=== PATIENT | female | born 1985 | race Caucasian/White ===

== ENCOUNTER → 2023-07-31 20:24 | Outpatient (REF) | payer BC, SELFPAY | LOC: MRI 20:24 | PROVIDERS: ATTENDING PHYSICIAN Psychiatry & Neurology Neurology; FAMILY PHYSICIAN Internal Medicine | DX: G45.9 Transient cerebral ischemic attack, unspecified (principal) | CPT/HCPCS: 70549; A9585 ==

== ENCOUNTER → 2023-09-16 07:03 | Outpatient (REF) | payer BC, SELFPAY | LOC: RAD 07:03 | PROVIDERS: ATTENDING PHYSICIAN Student in an Organized Health Care Education/Training Program; FAMILY PHYSICIAN Internal Medicine | DX: G45.9 Transient cerebral ischemic attack, unspecified (principal) | CPT/HCPCS: 93880 ==

== ENCOUNTER → 2023-10-08 07:25 | Outpatient (REF) | payer BC, SELFPAY | LOC: RCS 07:25 | PROVIDERS: ATTENDING PHYSICIAN Internal Medicine Interventional Cardiology; FAMILY PHYSICIAN Internal Medicine; REFERRING PHYSICIAN Internal Medicine Interventional Cardiology | DX: Q21.11 Secundum atrial septal defect (principal) | CPT/HCPCS: 93306 ==

== ENCOUNTER → 2023-12-29 15:48 | Outpatient (REF) | payer BC, SELFPAY ==
[2023-12-29 15:15] LABS: % Basophils 0.5 % (0-2); % Eosinophils 7.4 % (0-6); % Immature Granulocytes 0.3 % (0-0.5); % Lymphocytes 27.4 % (20.5-51.1); % Monocytes 6.6 % (1.7-9.3); % Neutrophils 57.8 % (42.2-75.2); Absolute Eosinophils 0.6 10^3/uL (0-0.7); Absolute Lymphocytes 2.1 10^3/uL (1.2-3.4); Absolute Monocytes 0.5 10^3/uL (0.1-0.6); Absolute Neutrophils 4.5 10^3/uL (1.4-6.5); Hematocrit 33.3 % (37.0-47.0); Hemoglobin 12.1 g/dL (12.0-16.0); Mean Corp Hgb Conc. 36.3 g/dL (33.0-37.0); Mean Corpuscular Hgb 24.4 pg (27.0-31.0); Mean Corpuscular Volume 67.1 fL (81.0-99.0); Mean Platelet Volume 10.1 fL (7.4-10.4); Nucleated Red Blood Cells % 0 %; Platelet Count 333 10^3/uL (130-400); Red Blood Cell Count 4.96 10^6/uL (4.20-5.40); Red Cell Dist. Width 13.6 % (11.5-14.5); White Blood Cell Count 7.8 10^3/uL (4.8-10.8)
== END ==
LOC: OIDL 15:48
PROVIDERS: ATTENDING PHYSICIAN Internal Medicine Hematology & Oncology
DX: I63.40 Cerebral infarction due to embolism of unspecified cerebral artery (principal)
CPT/HCPCS: 85025

== ENCOUNTER → 2024-01-12 16:02 | Outpatient (REF) | payer BC, SELFPAY ==
[2024-01-12 14:36] LABS: % Basophils 0.8 % (0-2); % Eosinophils 7.6 % (0-6); % Immature Granulocytes 0.4 % (0-0.5); % Lymphocytes 32.8 % (20.5-51.1); % Monocytes 4.9 % (1.7-9.3); % Neutrophils 53.5 % (42.2-75.2); Absolute Basophils 0.1 10^3/uL (0-0.2); Absolute Eosinophils 0.6 10^3/uL (0-0.7); Absolute Lymphocytes 2.6 10^3/uL (1.2-3.4); Absolute Monocytes 0.4 10^3/uL (0.1-0.6); Absolute Neutrophils 4.3 10^3/uL (1.4-6.5); Mean Corp Hgb Conc. 36.4 g/dL (33.0-37.0); Mean Corpuscular Hgb 24.8 pg (27.0-31.0); Mean Corpuscular Volume 68.2 fL (81.0-99.0); Mean Platelet Volume 9.9 fL (7.4-10.4); Nucleated Red Blood Cells % 0 %; Platelet Count 320 10^3/uL (130-400); Red Blood Cell Count 4.84 10^6/uL (4.20-5.40); Red Cell Dist. Width 14.1 % (11.5-14.5)
== END ==
LOC: OIDL 16:02
PROVIDERS: ATTENDING PHYSICIAN Internal Medicine Hematology & Oncology
DX: I63.40 Cerebral infarction due to embolism of unspecified cerebral artery (principal)
CPT/HCPCS: 85025

== ENCOUNTER 2024-08-24 22:24 | Inpatient (IN) | payer BC, SELFPAY ==
[2024-08-24 17:55] VITALS: BP 171/111
--- NOTE | 2024-08-24 17:59 | ED.GENMED ---
ED Provider Triage
<Major Wang PA-C - Last Filed: 08/24/24 18:00>
-
Patient seen by provider in Triage?: Seen in Triage
Attestation: A medical screening examination has been initiated by a qualified medical provider. Based on the assessment performed at this time, it has been determined that an emergent medical condition may exist and the patient has been informed
that further medical evaluation and possible additional diagnostic testing may be needed.
HPI: 38-year-old female presents the emergency department for evaluation of left-sided chest discomfort and left arm numbness beginning 2 to 3 hours ago. She was seated at her work desk when the symptoms began. Feels comparable to prior episodes
that were felt to represent a TIA and was ultimately diagnosed with an atrial septal defect which was since been repaired at [facility]
GENERAL: Alert , in no apparent distress
EYE: No visual abnormalities.
NECK: Trachea midline
ENT: No visible abnormalities.
LUNGS: No acute respiratory distress
NEUROLOGICAL: Alert and oriented
SKIN: Skin intact. No visible changes.
MUSCULOSKELETAL: Moving extremities normally
PSYCH: Normal and appropriate interaction.
This is a medical evaluation conducted in person to initiate diagnostic evaluation and provide initial therapeutics. Please see further documentation by the treating clinician.
History of Present Illness
<Major Wang PA-C - Last Filed: 08/24/24 18:00>
General
Chief Complaint: Breathing Problem
Time Seen by Provider: 08/24/24 20:44
<Krzysztof Cerda DO - Last Filed: 08/24/24 23:01>
General
Source: patient
Exam Limitations: none
Nursing documentation reviewed up to this point in time: agreed with
History of Present Illness
History of Present Illness:
. 38-year-old female presents Emergency Department complaining of left-sided chest pain and left jaw pain left upper extremity and left lower extremity numbness and tingling. This began at about 3 PM. She has had similar episodes with a negative
stroke workup in the past, but has received TNK and tPA.
Past History
<Major Wang PA-C - Last Filed: 08/24/24 18:00>
Past History
ED Past Medical History: CVA and Other (ASD)
ED Past Surgical History: Cardiac (ASD closure at 04/08/2023)
Social History
Tobacco: Non-smoker
Alcohol: None
Drug: None
Personal:
Living: with family
Review of Systems
<Krzysztof Cerda, - Last Filed: 08/24/24 23:01>
Review of Systems
Allergies reviewed?: Yes
All Other Systems: Not applicable
Constitutional: Reports no symptoms
EENT: Reports no symptoms
Respiratory: Reports no symptoms
Cardiac: Reports chest pain
ABD/GI: Reports no symptoms
: Reports no symptoms
Musculoskeletal: Reports no symptoms
Skin: Reports no symptoms
Neurological: Reports numbness
Endocrine: Reports no symptoms
Hematologic/Lymphatic: Reports no symptoms
Psychiatric: Reports no symptoms
Phy Exam
<Krzysztof Cerda DO - Last Filed: 08/24/24 23:01>
Physical Exam
Physical Exam:
Physical Exam
General: no apparent distress, not acutely ill
Neck: supple. no meningeal signs. normal posterior pharynx
Heart: s1/s2 regular rate and rhythm, no murmur. equal radial
pulses.
HEENT: Pupils equal round reactive to light, EOMI
Lungs: no acute respiratory distress. clear bilaterally
Abdomen: normal bowel sounds. not tender. no CVAT
Neuro: alert and oriented. no focal neurological deficits cranial nerves II through XII intact
Skin: no rash
Psychiatric: well kept. interactive and cooperative
Extremities: no edema. no calf tenderness. negative homans. good distal pulses
Course
<Major Wang PA-C - Last Filed: 08/24/24 18:00>
Orders/Labs/Results
Orders:
Orders
08/24/24 17:35
Electrocardiogram (*1) Urgent
Reason for Study: Shortness of Breath
EKG- Treatment ONCE
08/24/24 17:58
CT Head W/o Iv Contrast Urgent
Comment:
Reason For Exam: L facial/arm/leg numbness
08/24/24 18:11
Complete Blood Count/With Diff Urgent
Comprehensive Metabolic Panel Urgent
D-Dimer Urgent
Troponin I Urgent
08/24/24 21:19
Aspirin 325 mg PO NOW STA
Labetalol HCl [Trandate] 10 mg IV NOW STA
08/24/24 22:17
Admit/Transfer Patient As Directed
Co-Sign Provider:
Level of Care: Inpatient admission
Assign to:: Telemetry
Physician / Group: cande
Diagnosis: atypical
Reason for Telemetry: Arrhythmia
Date to Stop Telemetry: 08/27/24
Time to Stop Telemetry: 11:00
Reason for Hospitalization: left sided weakness
Expected length of stay greater than two midnights?: Yes
ELOS- Estimated Length of Stay in days: 2
I certify the patient meets the requirements for IP care: Yes
PRN Pain Medication Management As Directed
May give lesser potent ordered pain med per pt: Yes
preference::
Protocol:: Medication orders for pain may be administered in a
manner that supports deferring to patient preference
when the pt is:
- Requesting an ordered lesser potent pain medication.
Least to most potent pain medications are defined
as: acetaminophen < NSAID < tramadol < opioids
(morphine, oxycodone, hydromorphone).
- Requesting a lesser dose of the same medication IF
ORDERED.
- Requesting a less intrusive route of administration
if both routes are prescribed by the provider (PO <
IV).
08/24/24 22:18
Code Status As Directed
Resuscitation Status: Full Code
08/24/24 22:20
Clopidogrel Bisulfate [Plavix] 300 mg PO NOW STA
08/27/24 11:00
DC Protocol for Telemetry ONCE
Abnormal Lab Results
08/24/24
18:11
Hct 35.8 L %
(37.0-47.0)
MCV 70.3 L fL
(81.0-99.0)
MCH 25.7 L pg
(27.0-31.0)
Eosinophils % 8.2 H %
(0-6)
08/24/24 18:11
08/24/24 18:11
Vital Signs
Initial and Last Documented VS:
Initial Vital Signs
Temp Pulse Resp BP Pulse Ox
98.5 F 69 18 171/111 99
08/24/24 17:55 08/24/24 17:55 08/24/24 17:55 08/24/24 17:55 08/24/24 17:55
Last Documented Vital Signs
Temp Pulse Resp BP Pulse Ox
98.5 F 59 15 151/97 98
08/24/24 17:55 08/24/24 22:30 08/24/24 22:30 08/24/24 22:00 08/24/24 22:30
<Krzysztof Cerda, DO - Last Filed: 08/24/24 23:01>
Orders/Labs/Results
Orders:
Orders
08/24/24 17:35
Electrocardiogram (*1) Urgent
Reason for Study: Shortness of Breath
EKG- Treatment ONCE
08/24/24 17:58
CT Head W/o Iv Contrast Urgent
Comment:
Reason For Exam: L facial/arm/leg numbness
08/24/24 18:11
Complete Blood Count/With Diff Urgent
Comprehensive Metabolic Panel Urgent
D-Dimer Urgent
Troponin I Urgent
08/24/24 21:19
Aspirin 325 mg PO NOW STA
Labetalol HCl [Trandate] 10 mg IV NOW STA
08/24/24 22:17
Admit/Transfer Patient As Directed
Co-Sign Provider:
Level of Care: Inpatient admission
Assign to:: Telemetry
Physician / Group: cande
Diagnosis: atypical
Reason for Telemetry: Arrhythmia
Date to Stop Telemetry: 08/27/24
Time to Stop Telemetry: 11:00
Reason for Hospitalization: left sided weakness
Expected length of stay greater than two midnights?: Yes
ELOS- Estimated Length of Stay in days: 2
I certify the patient meets the requirements for IP care: Yes
PRN Pain Medication Management As Directed
May give lesser potent ordered pain med per pt: Yes
preference::
Protocol:: Medication orders for pain may be administered in a
manner that supports deferring to patient preference
when the pt is:
- Requesting an ordered lesser potent pain medication.
Least to most potent pain medications are defined
as: acetaminophen < NSAID < tramadol < opioids
(morphine, oxycodone, hydromorphone).
- Requesting a lesser dose of the same medication IF
ORDERED.
- Requesting a less intrusive route of administration
if both routes are prescribed by the provider (PO <
IV).
08/24/24 22:18
Code Status As Directed
Resuscitation Status: Full Code
08/24/24 22:20
Clopidogrel Bisulfate [Plavix] 300 mg PO NOW STA
08/27/24 11:00
DC Protocol for Telemetry ONCE
Abnormal Lab Results
08/24/24
18:11
Hct 35.8 L %
(37.0-47.0)
MCV 70.3 L fL
(81.0-99.0)
MCH 25.7 L pg
(27.0-31.0)
Eosinophils % 8.2 H %
(0-6)
08/24/24 18:11
08/24/24 18:11
Vital Signs
Initial and Last Documented VS:
Initial Vital Signs
Temp Pulse Resp BP Pulse Ox
98.5 F 69 18 171/111 99
08/24/24 17:55 08/24/24 17:55 08/24/24 17:55 08/24/24 17:55 08/24/24 17:55
Last Documented Vital Signs
Temp Pulse Resp BP Pulse Ox
98.5 F 59 15 151/97 98
08/24/24 17:55 08/24/24 22:30 08/24/24 22:30 08/24/24 22:00 08/24/24 22:30
<Krzysztof Cerda, DO - Last Filed: 08/24/24 23:01>
MDM/Problems Addressed
Differential Diagnosis Includes:
ACS, pulmonary embolism, TIA, CVA
MDM/Problems Addressed:
38-year-old female with left-sided numbness concerning for TIA versus atypical migraine. TNK/tPA not indicated. Will admit for further evaluation.
Chronic conditions affecting care: HTN and Other (ASD)
<Krzysztof Cerda, DO - Last Filed: 08/24/24 23:01>
*Radiology
Radiology exam reviewed: radiology read reviewed (CT head no acute findings)
*Pulse Oximetry
Patient hypoxic: no
*EKG
Interpreted by ED Provider?: Yes
EKG Intrepretation Date: 08/24/24
EKG Intrepretation Time: 17:37
Interpretation: normal
Comparison EKG: no comparison EKG present
Heart Rate: 66
Rate: normal
Rhythm: sinus
[place]: normal axis
Interval: normal interval
QRS Pattern: normal QRS
Ischemia: no ischemia
*Outside Rigger Interpretation
Rate: normal
Interpretation: normal
Heart Rate: 70
Rhythm: sinus
*Critical Care Note
Total Time (30-74mins, 75-104mins- exclusive of procedures): Not Applicable
Data Reviewed
Review of Other/Old Records Reveals: Labs, Radiology Studies (prior normal MRI) and Progress Notes (prior concern for CVA, given TNK and TPA)
Source: patient and records
Prescriptions/Medications Considered But Not Given:
TNK not indicated
<Krzysztof Cerda DO - Last Filed: 08/24/24 23:01>
Patient Management
Social determinants of health affecting care: Living situation and Strong social support
Discussion with other providers: Hospitalist
Escalation/DeEscalation of care consider admission/obs:
admit indicated
ED Attending Note
<Major Wang PA-C - Last Filed: 08/24/24 18:00>
-
Portions of this chart may have been created with voice recognition software.� Occasional wrong word or��sound alike� substitutions may have occurred due to the inherent limitations of voice recognition software.
Discharge Plan
Departure
Patient Disposition: Admit
Date of Disposition: 08/24/24
Time of Disposition: 21:18
Admit to: Telemetry
Presentation/result/management discussed w/ accepting MD/DO: Hospitalist
Patient with high blood pressure during this ER visit?: Yes
Condition: Good
Discharge Problem:
Paresthesia and pain of left extremity, Hypertensive urgency
Interventions
Interventions:
*Risk Screen - Suicide Last Done: 08/24/24 17:55
*General Assessment Last Done: 08/24/24 18:00
*Neglect/Abuse Screening Last Done: 08/24/24 21:23
ED- Fall Risk Assessment Last Done: 08/24/24 21:23
*ED COVID-19 Vaccine History Last Done: 08/24/24 17:55
ED- Cardiac Assessment Last Done: 08/24/24 21:23
ED- Pulmonary Assessment Last Done: 08/24/24 21:23
[2024-08-24 18:35] LABS: % Basophils 0.6 % (0-2); % Eosinophils 8.2 % (0-6); % Immature Granulocytes 0.1 % (0-0.5); % Lymphocytes 38.6 % (20.5-51.1); % Monocytes 6.1 % (1.7-9.3); % Neutrophils 46.4 % (42.2-75.2); Absolute Basophils 0.1 10^3/uL (0-0.2); Absolute Eosinophils 0.6 10^3/uL (0-0.7); Absolute Monocytes 0.5 10^3/uL (0.1-0.6); Absolute Neutrophils 3.6 10^3/uL (1.4-6.5); Hematocrit 35.8 % (37.0-47.0); Hemoglobin 13.1 g/dL (12.0-16.0); Mean Corp Hgb Conc. 36.6 g/dL (33.0-37.0); Mean Corpuscular Hgb 25.7 pg (27.0-31.0); Mean Corpuscular Volume 70.3 fL (81.0-99.0); Mean Platelet Volume 9.6 fL (7.4-10.4); Nucleated Red Blood Cells % 0 %; Platelet Count 326 10^3/uL (130-400); Red Blood Cell Count 5.09 10^6/uL (4.20-5.40); Red Cell Dist. Width 12.5 % (11.5-14.5); White Blood Cell Count 7.9 10^3/uL (4.8-10.8)
[2024-08-24 18:52] LABS: D-Dimer 0.27 ug/mlFEU (0.00-0.50)
[2024-08-24 18:57] LABS: Troponin I < 0.012 ng/ml
[2024-08-24 18:59] LABS: ALT (SGPT) 19 U/L (0-35); AST (SGOT) 23 U/L (14-36); Albumin 4.6 g/dl (3.5-5.0); Alkaline Phosphatase 119 U/L (38-126); Blood Urea Nitrogen 10 mg/dl (7-17); Calcium 9.7 mg/dl (8.4-10.2); Carbon Dioxide 25 mmol/L (22-30); Chloride 101 mmol/L (98-107); Glucose 81 mg/dl (70-99); Potassium 4.1 mmol/L (3.5-5.1); Sodium 136 mmol/L (135-145); Total Bilirubin 0.6 mg/dl (0.2-1.3); Total Protein 7.7 g/dl (6.3-8.2); eGFR > 60.00
[2024-08-24 21:17] VITALS: BP 150/103
[2024-08-24 21:21] VITALS: BMI 27.6
[2024-08-24] MEDS: ASPIRIN 325 MG PO (21:38)
[2024-08-24 21:44] VITALS: BP 159/112
[2024-08-24] MEDS: TRANDATE 10 MG IV (21:46)
[2024-08-24 22:00] VITALS: BP 151/97
--- NOTE | 2024-08-24 22:22 | HPS.HSE ---
Family Physician
-
Family Physician: Laura Andersen
Chief Complaint
-
left sided tingling
History of Present Illness
38-year-old female past medical history of TIAs, ASD status post ASD closure in 2022, B12 deficiency, migraines, presenting with left-sided facial tingling as well as left upper extremity tingling starting around 3 PM today. This is also associated
with some discomfort in her left chest associated with shortness of breath. Denies vertigo, speaking or swallowing difficulty.
She has a history of migraines and a variable frequency sometimes a few times a week to only a few times a month. She has been having a persistent headache all around her head for the past week. She takes Nurtec as needed.
She states that the symptoms have improved a little bit. But continues to feel that her hand feels different. She denies any vertigo. She denies any nausea or vomiting or sweating.
Since her last admission here she has followed up with cardiology at [place] who did not note any changes in her care. She was following with Dr. Berry of neurology here who thought she was having migraines.
She also has seen rheumatology who did autoimmune workup and did not find any pathological cause for her symptoms.
When she was admitted in May with similar symptoms she received TNK. MRI of the brain was unremarkable. CTA showed no vascular abnormalities. She was continued on dual antiplatelet therapy. Psychiatric evaluation was concern for possible
conversion disorder. No cardiac cause was found for chest pain.
She takes lisinopril as needed if her diastolic blood pressures greater than 95.
She denies smoking or alcohol use.
Medical History
Past Medical History
Past Medical History: Reports Other (TIAs, ASD status post ASD closure in 2022, B12 deficiency, migraines,)
Past Surgical History: Reports None
Social History
Tobacco: Non-smoker
Alcohol: None
Drug: None
Family History
Family History: Not pertinent
Allergies / Home Medications
Allergies reflects when Allergies were last updated in AF83.
Home Medications with original date entered in AF83
Allergy/Medication List:
Allergies
Allergy/AdvReac Type Severity Reaction Status Date / Time
No Known Allergies Allergy Verified 08/24/24 18:00
Home Medications
lisinopril 5 mg tablet 5 mg PO DAILYPRN PRN diastolic BP>95 08/24/24
rimegepant 75 mg disintegrating tablet (Nurtec ODT) 75 mg PO DAILYPRN PRN migraine 08/24/24
Review of Systems
-
History Source: Patient
A 12 point ROS was completed and negative except as noted: Yes
Constitutional: Reports No Symptoms
EENT: Reports No Symptoms
Respiratory: Reports No Symptoms
Cardiac: Reports No Symptoms
Abdomen/GI: Reports No Symptoms
: Reports No Symptoms
Musculoskeletal: Reports No Symptoms
Skin: Reports No Symptoms
Neurological: Reports See HPI
Endocrine: Reports No Symptoms
Hematologic/Lymphatic: Reports No Symptoms
Psych: Reports No Symptoms
Physical Exam
Vital Signs
Vital Signs
Temp Pulse Resp BP Pulse Ox
98.5 F 64 12 151/97 98
08/24/24 17:55 08/24/24 22:00 08/24/24 22:00 08/24/24 22:00 08/24/24 22:00
Physical Exam
General: Well Developed, Well Nourished and No Apparent Distress
HEENT: NormoCephalic, Moist mucous membranes and Atraumatic
Respiratory: Clear
Cardiac: S1/S2 and Regular Rhythm; No Murmur or Rub
GI: Soft, Non Tender, Non Distended and Normal Bowel Sounds; No Organomegaly
Rectal: Deferred by Provider
Musculoskeletal: No Clubbing, No Cyanosis and No Edema
Skin: No Rash
Neuro: Nonfocal/grossly intact and Other (left sided numbness, slight weakness )
Laboratory Results
-
08/24/24 18:11
08/24/24 18:11
Laboratory Results
Total Bilirubin 0.6 mg/dl (0.2-1.3) 08/24/24 18:11
AST 23 U/L (14-36) 08/24/24 18:11
ALT 19 U/L (0-35) 08/24/24 18:11
Alkaline Phosphatase 119 U/L (38-126) 08/24/24 18:11
Troponin I < 0.012 ng/ml 08/24/24 18:11
Data Reviewed
-
Lab Data: Labs Reviewed by me
Old Records: Reviewed
Impression/Plan
-
IMPRESSION:
PLAN:
# Atypical migraine versus recurrent TIA versus CVA versus versus conversion disorder
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
-Very similar symptoms compared to when I saw her in May 2023, and also having ongoing recurrent migraines
-CT head shows no acute abnormality
-Aspirin 325 mg given, also giving 300 Plavix
-Check MRI brain/MRA head and neck
-Neurochecks per protocol
-Neurology consulted
# Chest pain secondary to above phenomenon
-Patient likewise had chest pressure with previous episode like this
-EKG shows normal sinus rhythm, LVH
-Troponin negative, continue to trend
# Hypertensive urgency
-Given labetalol but allow for permissive hypertension at this time in case this is a CVA
# Recurrent migraines
-May need preventive therapy
-Defer to neurology
History of small ASD status post ASD closure in March
-No updates as per cardio
B12 deficiency
-Check B12, TSH
Vitamin D deficiency
Full code
DVT prophylaxis�SCDs
Regular diet
[2024-08-24] MEDS: PLAVIX 300 MG PO (22:30)
[2024-08-24 23:00] VITALS: BP 135/87
[2024-08-25] VITALS: BP 123/81
[2024-08-25 01:00] VITALS: BP 114/81
[2024-08-25 02:00] VITALS: BP 106/79
[2024-08-25 04:00] VITALS: BP 107/83
[2024-08-25 05:53] LABS: % Basophils 0.9 % (0-2); % Immature Granulocytes 0.2 % (0-0.5); % Lymphocytes 27.5 % (20.5-51.1); % Monocytes 6.9 % (1.7-9.3); % Neutrophils 52.5 % (42.2-75.2); Absolute Basophils 0.1 10^3/uL (0-0.2); Absolute Eosinophils 0.8 10^3/uL (0-0.7); Absolute Lymphocytes 1.8 10^3/uL (1.2-3.4); Absolute Monocytes 0.5 10^3/uL (0.1-0.6); Absolute Neutrophils 3.5 10^3/uL (1.4-6.5); Hematocrit 35.3 % (37.0-47.0); Hemoglobin 12.7 g/dL (12.0-16.0); Mean Corpuscular Hgb 25.7 pg (27.0-31.0); Mean Corpuscular Volume 71.5 fL (81.0-99.0); Mean Platelet Volume 9.8 fL (7.4-10.4); Nucleated Red Blood Cells % 0 %; Platelet Count 271 10^3/uL (130-400); Red Blood Cell Count 4.94 10^6/uL (4.20-5.40); Red Cell Dist. Width 12.6 % (11.5-14.5); White Blood Cell Count 6.7 10^3/uL (4.8-10.8)
[2024-08-25 06:19] LABS: ALT (SGPT) 16 U/L (0-35); AST (SGOT) 19 U/L (14-36); Albumin 3.7 g/dl (3.5-5.0); Alkaline Phosphatase 101 U/L (38-126); Blood Urea Nitrogen 10 mg/dl (7-17); Calcium 9.1 mg/dl (8.4-10.2); Carbon Dioxide 24 mmol/L (22-30); Chloride 104 mmol/L (98-107); Estimated Creatinine Clearance 94 ml/min; Glucose 95 mg/dl (70-99); Potassium 3.8 mmol/L (3.5-5.1); Sodium 137 mmol/L (135-145); Total Bilirubin 0.8 mg/dl (0.2-1.3); Total Protein 6.7 g/dl (6.3-8.2); eGFR > 60.00
[2024-08-25 06:52] LABS: TSH Reflex To Free T4 2.74 uIU/ml (0.47-4.68)
[2024-08-25 07:10] LABS: Vitamin B12 251 pg/ml (239-931)
[2024-08-25 10:31] VITALS: BP 127/93
--- NOTE | 2024-08-25 10:34 | PTCARENOTE ---
Patient received on stretcher alert and oriented. Patient denying headache, blurred vision. Patient states that the only residual issue is numbness and tingling in left hand. Patient seen by Hospitalist. Mri completed this am, disposition pending
results.
--- NOTE | 2024-08-25 11:53 | W.PN.HOSP.TC ---
Addendum entered and electronically signed by Elmer Eldridge MD 08/25/24 12:03:
Discussed with neurology Dr. Rocha, he has discussed preventatives with patient. Will discharge her today since she is improved
Original Note:
Today's Communication/Plan
-
Monitor vital signs see plan
Awaiting neurology recommendation prior to discharge
DC aspirin Plavix
Assessment / Plan
Assessment / Plan
General: Well Developed, Well Nourished and No Apparent Distress
HEENT: NormoCephalic, Moist mucous membranes and Atraumatic
Respiratory: Clear
Cardiac: S1/S2 and Regular Rhythm; No Murmur or Rub
GI: Soft, Non Tender, Non Distended and Normal Bowel Sounds
Musculoskeletal: No Edema
Neuro: Nonfocal/grossly intact
Left-sided numbness suspect secondary to atypical migraine
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
-Very similar symptoms compared to when I saw her in May 2023, and also having ongoing recurrent migraines
-CT head shows no acute abnormality
MRI/MRA negative for acute CVA. Neurology following. If patient stable from neurological standpoint then likely discharge today
Advised patient to follow-up with migraine specialist outpatient. Currently her symptoms are about 90% better
# Chest pain secondary to above phenomenon
-Patient likewise had chest pressure with previous episode like this
-EKG shows normal sinus rhythm, LVH
-Troponin negative
# Hypertensive urgency
-Given labetalol in ED 08/24; now improved
Advised patient to check her blood pressure at home and to follow-up with primary care provider
Vitamin B12 deficiency
Replete
# Recurrent migraines
-May need preventive therapy
-Defer to neurology
History of small ASD status post ASD closure in March
-No updates as per cardio
Vitamin D deficiency
Full code
DVT prophylaxis�SCDs
Anticipated Discharge: Today
Subjective/Interval History
-
Date of Service: August 25, 2024
denies pain
Objective Data
-
Labs:
Laboratory Results
08/25/24
05:25
WBC 6.7
Hgb 12.7
Hct 35.3 L
Plt Count 271
Sodium 137
Potassium 3.8
Chloride 104
Carbon Dioxide 24
BUN 10
Creatinine 0.7
Glucose 95
Calcium 9.1
Total Bilirubin 0.8
AST 19
ALT 16
Alkaline Phosphatase 101
Vital Signs:
Vital Signs
Temp Pulse Resp BP Pulse Ox
98.5 F 67 16 127/93 95
08/25/24 10:31 08/25/24 10:31 08/25/24 10:31 08/25/24 10:31 08/25/24 10:31
--- NOTE | 2024-08-25 12:08 | W.DCSUMMARY ---
Discharge Summary
Discharge Data
Date of Admission: 08/24/24
Date of Discharge: 08/25/24
-
Pending Results: No
Hospital Course
38-year-old female with past medical history of ASD repair, migraine came to the hospital with left-sided numbness and weakness. CT scan and MRI both were negative for any CVA. Patient was seen by neurology with outpatient symptoms are likely
related to migraine. Patient initially had elevated blood pressure and was giving labetalol. On discharge she was directed to check her blood pressure twice daily and to follow-up with primary care provider for further blood pressure medication
titration. She also had low vitamin B12 and was started on vitamin B12 repletion. Neurology discussed preventative outpatient treatments with patient and wanted to follow-up outpatient. Patient symptoms continue to improve over time and she was
discharged home with instructions to follow-up with all her physicians outpatient.
Discharge Plan
-
Patient Disposition: Home (Routine Discharge)
Discharge Diagnosis/Procedures: Atypical migraine
Hypertension
Vitamin B12 deficiency
Diet: As tolerated
Driving Restrictions: As prior to admission
Bathing Restrictions: None
Activity Restrictions/Additional Instructions:
Follow-up with your neurologist outpatient
Please check your blood pressure twice daily and follow-up with your primary care provider
Referrals:
Laura Andersen MD [Family Provider] - in less than 1 week
Prescriptions:
New
cyanocobalamin (vitamin B-12) 1,000 mcg capsule
1,000 mcg PO DAILY Qty: 30 0RF
Continued
lisinopril 5 mg Tablet
5 mg PO DAILYPRN PRN (Reason: diastolic BP>95)
Nurtec ODT 75 mg Tablet,Disintegrating
75 mg PO DAILYPRN PRN (Reason: migraine)
Discharge Orders:
Discharge Patient (As Directed); Ordered 08/25/24
Ordered By: Elmer Eldridge
Discharge Date and Time
Discharge Date/Time: 08/25/24 13:04
Print Language: URDU
--- NOTE | 2024-08-25 12:45 | CON.NEURO ---
Neuro Assessment/Plan
Assessment
Acephalgic migraine aura
the fact that it started in one place and then spread, is more consistent with a migraine aura, slow cortical depolarization (i.e. a slow seizure) than with a vascular problem
we discussed trying Rx for Zonisamide
discussed preventative outpatient treatments, including Botox as she averages more than 15 headache days per month; Ajovy, Amovig, Emgality, Qlipta
Plan
ok to d/c home
she doesn't need MRI when this happens again
Consultation
Order
Date of Consultation: 08/25/24
Requesting Provider:
Reason for Consult:
Subjective/Objective
Subjective Data
Date of Service: August 25, 2024
She is a 38 year old woman, history of ASD repair, presenting yesterday with episode of left sided face and limb tingling. symptoms began as a discomfort in the left chest/shoulder area, and then spread throughout her left side. Had similar episodes
in September 2022 and May 2023. Etiology has been unclear; she received TNK for similar event in May 2023.
History of migraines, can be several days per week or several days per month. sometimes more than 15 days per month; had a headache all last week but not yesterday when these symptoms started
Objective Data
Vital Signs
Temp Pulse Resp BP Pulse Ox
36.9 C 67 16 127/93 95
08/25/24 10:31 08/25/24 10:31 08/25/24 10:31 08/25/24 10:31 08/25/24 10:31
Lab Results
08/25/24 05:25
08/25/24 05:25
Sodium 137 mmol/L (135-145) 08/25/24 05:25
Potassium 3.8 mmol/L (3.5-5.1) 08/25/24 05:25
BUN 10 mg/dl (7-17) 08/25/24 05:25
Glucose 95 mg/dl (70-99) 08/25/24 05:25
Calcium 9.1 mg/dl (8.4-10.2) 08/25/24 05:25
Vitamin B12 251 pg/ml (239-931) 08/25/24 05:25
Patient Allergies
No Known Allergies Allergy (Verified 08/24/24 18:00)
Physical Exam
-
AAOx3
speech clear
VFF, EOMI, face symmetric
full strength b/l UE/LE
Medications
-
Active Medications
Generic Name Dose Route Start Last Admin
Trade Name Freq PRN Reason Stop Dose Admin
Cyanocobalamin 1,000 mcg 08/25/24 11:00
Cyanocobalamin (1000 Mcg/Ml) 1 Ml Vial IM 09/01/24 10:59
DAILY DUSTIN
Sodium Chloride 0 flush 08/25/24 11:00
Sodium Chloride 0.9% (Flush) Syringe IV 09/22/24 10:59
PER PROTOCOL DUSTIN
Home Medications
�Medication �Instructions �Recorded
lisinopril 5 mg tablet 5 mg PO DAILYPRN PRN diastolic 08/24/24
BP>95
rimegepant 75 mg disintegrating 75 mg PO DAILYPRN PRN migraine 08/24/24
tablet (Nurtec ODT)
cyanocobalamin (vitamin B-12) 1,000 mcg PO DAILY #30 caps 08/25/24
1,000 mcg capsule
[2024-08-25] MEDS: CYANOCOBALAMIN 1000 MCG IM (12:52)
--- NOTE | 2024-08-25 13:57 | CM ---
CM reviewed medical records. Patient has been discharged. No needs noted.
PLAN: home no needs.
== END 2024-08-25 13:04 | disposition home or self-care (01) | DRG 103 ==
LOC: ED 22:24
PROVIDERS: Physician Assistant; ADMITTING PHYSICIAN Hospitalist; ATTENDING PHYSICIAN Internal Medicine; EMERGENCY PHYSICIAN Emergency Medicine; FAMILY PHYSICIAN Internal Medicine; OTHER PHYSICIAN Psychiatry & Neurology Clinical Neurophysiology
DX: G43.109 Migraine with aura, not intractable, without status migrainosus (principal); I10 Essential (primary) hypertension; E53.8 Deficiency of other specified B group vitamins; Z87.74 Personal history of (corrected) congenital malformations of heart and circulatory system; Z86.73 Personal history of transient ischemic attack (TIA), and cerebral infarction without residual deficits; I16.0 Hypertensive urgency; E55.9 Vitamin D deficiency, unspecified
CPT/HCPCS: 70450; 70544; 70548; 70551; 80053; 82607; 84443; 84484; 85025; 85379; 93005; A9585

== ENCOUNTER → 2024-10-05 07:11 | Outpatient (REF) | payer BC, SELFPAY | LOC: HWRCS 07:11 | PROVIDERS: ATTENDING PHYSICIAN Internal Medicine Interventional Cardiology; FAMILY PHYSICIAN Internal Medicine | DX: Q21.12 Patent foramen ovale (principal); I10 Essential (primary) hypertension; Q21.11 Secundum atrial septal defect | CPT/HCPCS: 93306 ==

== ENCOUNTER → 2025-04-04 11:15 | Outpatient (REF) | payer BC, SELFPAY | LOC: HWWDC 11:15 | PROVIDERS: ATTENDING PHYSICIAN Obstetrics & Gynecology; FAMILY PHYSICIAN Internal Medicine | DX: Z12.31 Encounter for screening mammogram for malignant neoplasm of breast (principal) | CPT/HCPCS: 77063; 77067 ==

== ENCOUNTER → 2025-04-11 12:54 | Outpatient (REF) | payer BC, SELFPAY | LOC: HWRAD 12:54 | PROVIDERS: ATTENDING PHYSICIAN Obstetrics & Gynecology; FAMILY PHYSICIAN Internal Medicine | DX: N92.0 Excessive and frequent menstruation with regular cycle (principal) | CPT/HCPCS: 76830; 76856 ==